=== PATIENT | male | born 1975 | race Two or more races ===

== ENCOUNTER 2023-08-04 09:34 | Inpatient (IN) | payer OTHER ==
[~2023-08-04] VITALS: Ht 180.3 cm; Wt 86.2 kg
[2023-08-05] MEDS ORDERED: COZAAR100 MG PO (10:36)
== END 2023-08-12 10:36 | disposition home or self-care (01) | DRG 331 ==
LOC: O/R 08-10 05:34 → SURH 08-10 08:30
PROVIDERS: Internal Medicine; ADMIT Surgery; ATTEND Surgery
PROC: 0DBP4ZZ Excision of Rectum, Percutaneous Endoscopic Approach (ICD-10-PCS; 2023-08-10)
PROC: 0DJD8ZZ Inspection of Lower Intestinal Tract, Via Natural or Artificial Opening Endoscopic (ICD-10-PCS; 2023-08-10)
PROC: 8E0W4CZ Robotic Assisted Procedure of Trunk Region, Percutaneous Endoscopic Approach (ICD-10-PCS; 2023-08-10)
PROC: 0DTN4ZZ Resection of Sigmoid Colon, Percutaneous Endoscopic Approach (ICD-10-PCS; principal; 2023-08-10 11:00)
DX: K57.32 Diverticulitis of large intestine without perforation or abscess without bleeding (principal); N32.89 Other specified disorders of bladder
CPT/HCPCS: 44207; 44213; 45330; S2900